=== PATIENT | male | born 1965 | race Caucasian/White ===

== ENCOUNTER 2022-05-16 10:09 | Emergency (ER) | payer MEDICARE, MEDICAID ==
[~2022-05-16] VITALS: Ht 175.3 cm; Wt 127.0 kg
[2022-05-16 10:20] VITALS: BP 133/73
== END 2022-05-16 13:41 | disposition left against medical advice (07) ==
LOC: ER 10:09 → SUATTDRO 16:52
PROVIDERS: ATTEND Internal Medicine Critical Care Medicine
DX: Z53.21 Procedure and treatment not carried out due to patient leaving prior to being seen by health care provider (principal)